=== PATIENT | male | born 1955 | race Caucasian/White ===

== ENCOUNTER → 2019-10-26 | Outpatient (CLI) | payer BC ==
--- NOTE | 2019-10-26 12:45 | CT ---
EXAMINATION TYPE: CT sinus wo con DATE OF EXAM: 10/26/2019 COMPARISON: None HISTORY: Acute maxillary sinusitis. CT DLP: 722.[address] of the paranasal sinuses was performed in the axial and coronal planes. Bone and soft tissue settings are submitted. The paranasal sinuses demonstrate normal aeration and development. Mild mucosal thickening maxillary sinuses, ethmoid air cells, left frontal sinus and sphenoid sinus. There is obstruction of the left ostiomeatal unit. The right ostiomeatal unit is patent. The nasal septum is midline. No bony destructive changes are seen within the field of view. IMPRESSION: Mild chronic pansinusitis with obstruction of the left ostiomeatal unit.
== END | disposition home or self-care (01) ==
LOC: RADCTMAIN 12:12
PROVIDERS: ATTEND Family Medicine
DX: J32.4 Chronic pansinusitis (principal)
CPT/HCPCS: 70486